=== PATIENT | female | born 1980 | race Caucasian/White ===

== ENCOUNTER 2016-07-10 02:51 | Inpatient (IN) | payer OTHER ==
[~2016-07-10] VITALS: Ht 177.8 cm; Wt 78.0 kg
[2016-07-10] MEDS ORDERED: EPINEPHRINE 1 MG/ML ONE (03:03)
[2016-07-10] MEDS ORDERED: METHYLPRED SOD SUCC 125 MG/2 ML VIAL ONE (03:03)
[2016-07-10] MEDS ORDERED: EPINEPHrine 1 MG/ML AMP ONE (03:05)
[2016-07-10] MEDS ORDERED: FAMOTIDINE 20 MG INJ ONE (03:10)
[2016-07-10] MEDS ORDERED: DIPHENHYDRAMINE 50 MG/ML VIAL ONE (03:10)
[2016-07-10] MEDS ORDERED: ONDANSETRON 4 MG VIAL ONE (03:22)
[2016-07-10] MEDS ORDERED: DUONEB INH ONE (03:31)
[2016-07-10] MEDS ORDERED: hydrOXYzine 50 MG/ML VIAL IM ONE ×2 (06:00→06:05)
[2016-07-10] MEDS ORDERED: SALINE FLUSH 10 ML FLUSH PRN (06:45)
[2016-07-10] MEDS ORDERED: BISACODYL EC 5 MG TAB PO PRN (06:45)
[2016-07-10] MEDS ORDERED: ACETAMINOPHEN 325 MG TAB PO PRN (06:45)
[2016-07-10] MEDS ORDERED: ALU/MAG/SIM 30 ML UDC PO PRN (06:45)
[2016-07-10] MEDS ORDERED: MAG HYDROX 30 ML UDC PO PRN (06:45)
[2016-07-10] MEDS ORDERED: BISACODYL 10 MG SUPP RECTAL PRN (06:45)
[2016-07-10] MEDS ORDERED: NEB-RACEPINEPH 0.5 ML INH PRN (07:55)
[2016-07-10 08:43] VITALS: BP_SYST 109; RESP 16; TEMP 98.5
[2016-07-10] MEDS: DUONEB INH SCH ×5 (08:48→22:58)
[2016-07-10] MEDS ORDERED: PREDNISONE 20 MG TAB PO SCH (09:00)
[2016-07-10 10:09] VITALS: BMI 24.7
[2016-07-10] MEDS: SALINE FLUSH 10 ML FLUSH SCH ×2 (10:51→20:22)
[2016-07-10] MEDS: DIPHENHYDRAMINE 25 MG CAP PO SCH ×3 (10:51→20:21)
[2016-07-10] MEDS: PREDNISONE 50 MG TAB PO SCH (10:52)
[2016-07-10] MEDS: MONTELUKAST 10 MG TAB PO SCH (10:52)
[2016-07-10] MEDS: FAMOTIDINE 40 MG TAB PO SCH ×2 (10:52→20:21)
[2016-07-10] MEDS ORDERED: MISSING DOSE XX ONE (11:00)
[2016-07-10 11:31] VITALS: BP_SYST 125; RESP 16; TEMP 97.6
[2016-07-10 11:32] VITALS: RESP 18
[2016-07-10] MEDS ORDERED: DUONEB INH SCH (12:30)
[2016-07-10 16:45] VITALS: BP_SYST 105; RESP 16; TEMP 98.4
[2016-07-10 19:58] VITALS: BP_SYST 111; RESP 16; TEMP 98.4
[2016-07-10] MEDS: DIPHENHYDRAMINE 50 MG/ML VIAL IV PRN (22:32)
[2016-07-10 23:20] VITALS: BP_SYST 103; RESP 18; TEMP 98.5
[2016-07-11] VITALS (20 sets, daily range): BP systolic 101–165; RESP 14–21; TEMP 97.5–98.8
[2016-07-11] MEDS: SODIUM CHLORIDE 0.9% FLUSH BAG 500 ML IV SCH (06:00)
[2016-07-11] MEDS: DUONEB INH SCH ×6 (06:58→22:06)
[2016-07-11] MEDS ORDERED: MISSING DOSE XX ONE (09:40)
[2016-07-11] MEDS: SALINE FLUSH 10 ML FLUSH SCH ×2 (10:06→20:00)
[2016-07-11] MEDS: MONTELUKAST 10 MG TAB PO SCH (10:06)
[2016-07-11] MEDS: DIPHENHYDRAMINE 25 MG CAP PO SCH ×3 (10:06→21:00)
[2016-07-11] MEDS: FAMOTIDINE 40 MG TAB PO SCH (10:06)
[2016-07-11] MEDS: PREDNISONE 50 MG TAB PO SCH (10:07)
[2016-07-11] MEDS ORDERED: LORATADINE 10 MG TAB PO SCH (12:55)
[2016-07-11] MEDS: DIPHENHYDRAMINE 50 MG/ML VIAL IV PRN ×2 (12:59→18:13)
[2016-07-11] MEDS: CETIRIZINE 10 MG TAB PO SCH (14:31)
[2016-07-11] MEDS ORDERED: DIPHENHYDRAMINE 25 MG CAP PO SCH (16:00)
[2016-07-11] MEDS ORDERED: FENTANYL 100 MCG/2 ML AMP ONE (18:30)
[2016-07-11] MEDS ORDERED: PROPOFOL 100 ML 100 ML IV ONE ×2 (18:43→21:35)
[2016-07-11] MEDS ORDERED: FENTANYL DRIP 50 ML IV ONE (19:18)
[2016-07-11] MEDS ORDERED: FAMOTIDINE 20 MG INJ IV ONE (20:30)
[2016-07-11] MEDS: METHYLPRED SOD SUCC 125 MG/2 ML VIAL IV SCH (21:00)
[2016-07-11] MEDS: NEB-BUDESONIDE 0.5 MG INH SCH (22:06)
[2016-07-11] MEDS: NEB-BROVANA 15 MCG/2 ML INH SCH (22:06)
[2016-07-12] VITALS (48 sets, daily range): BP systolic 101–180; RESP 13–29; TEMP 97.8–98.9; Ht 177.8 cm; Wt 78.0 kg
[2016-07-12] MEDS ORDERED: ETOMIDATE 2 MG/ML 20 ML SYR IV ONE (00:03)
[2016-07-12] MEDS ORDERED: LORAZEPAM 2 MG/ML VIAL ONE (00:03)
[2016-07-12] MEDS ORDERED: MIDAZOLAM HCL 5 MG/5 ML VIAL ONE (00:03)
[2016-07-12] MEDS: DIPHENHYDRAMINE 50 MG/ML VIAL IV SCH ×4 (00:40→23:19)
[2016-07-12] MEDS: FENTANYL DRIP 50 ML IV PRN ×4 (01:23→23:25)
[2016-07-12] MEDS: PROPOFOL 100 ML 100 ML IV PRN ×9 (01:24→23:36)
[2016-07-12] MEDS: METHYLPRED SOD SUCC 125 MG/2 ML VIAL IV SCH ×5 (01:32→23:18)
[2016-07-12] MEDS ORDERED: EPINEPHRINE 0.3 MG/0.3 ML IM PRN (02:45)
[2016-07-12] MEDS: DUONEB INH SCH ×6 (03:00→22:47)
[2016-07-12] MEDS ORDERED: MISSING DOSE XX ONE (03:35)
[2016-07-12] MEDS: SODIUM CHLORIDE 0.9% FLUSH BAG 500 ML IV SCH (05:48)
[2016-07-12] MEDS ORDERED: SUCCINYLCHOLINE 20 MG/ML VL ONE (06:03)
[2016-07-12] MEDS ORDERED: ETOMIDATE 2 MG/ML VIAL IV ONE (06:03)
[2016-07-12] MEDS: NEB-BUDESONIDE 0.5 MG INH SCH ×2 (06:09→17:41)
[2016-07-12] MEDS: NEB-BROVANA 15 MCG/2 ML INH SCH ×2 (06:09→17:40)
[2016-07-12] MEDS: FAMOTIDINE 20 MG INJ IV SCH ×2 (08:02→20:27)
[2016-07-12] MEDS: SALINE FLUSH 10 ML FLUSH SCH ×2 (08:02→20:26)
[2016-07-12] MEDS: CETIRIZINE 10 MG TAB PO SCH (08:32)
[2016-07-12] MEDS: MONTELUKAST 10 MG TAB PO SCH (08:32)
[2016-07-12] MEDS ORDERED: MIDAZOLAM 2 MG/2 ML INJ ONE (23:22)
[2016-07-12] MEDS ORDERED: MIDAZOLAM HCL 5 MG/5 ML VIAL IV ONE (23:30)
[2016-07-13] VITALS (31 sets, daily range): BP systolic 61–137; RESP 7–17; TEMP 98.3–99.6
[2016-07-13] MEDS: PROPOFOL 100 ML 100 ML IV PRN ×3 (02:30→08:33)
[2016-07-13] MEDS: DUONEB INH SCH ×6 (02:40→23:12)
[2016-07-13] MEDS: SODIUM CHLORIDE 0.9% FLUSH BAG 500 ML IV SCH (05:27)
[2016-07-13] MEDS: METHYLPRED SOD SUCC 125 MG/2 ML VIAL IV SCH (05:28)
[2016-07-13] MEDS: NEB-BROVANA 15 MCG/2 ML INH SCH ×2 (06:28→18:37)
[2016-07-13] MEDS: NEB-BUDESONIDE 0.5 MG INH SCH ×2 (06:28→18:37)
[2016-07-13] MEDS: FENTANYL DRIP 50 ML IV PRN (07:32)
[2016-07-13] MEDS: MONTELUKAST 10 MG TAB PO SCH (07:52)
[2016-07-13] MEDS: SALINE FLUSH 10 ML FLUSH SCH ×2 (07:52→21:21)
[2016-07-13] MEDS: FAMOTIDINE 20 MG INJ IV SCH ×2 (07:53→21:21)
[2016-07-13] MEDS: CETIRIZINE 10 MG TAB PO SCH (07:53)
[2016-07-13] MEDS: DIPHENHYDRAMINE 50 MG/ML VIAL IV SCH ×2 (07:54→16:00)
[2016-07-13] MEDS ORDERED: NEB-RACEPINEPH 0.5 ML INH PRN ×2 (08:40→10:40)
[2016-07-13] MEDS: ONDANSETRON 4 MG VIAL IV PRN ×2 (10:34→16:12)
[2016-07-13] MEDS ORDERED: MISSING DOSE XX ONE (11:15)
[2016-07-13] MEDS: DIPHENHYDRAMINE 50 MG/ML VIAL IV PRN (11:25)
[2016-07-13] MEDS ORDERED: PROMETHAZINE 25 MG/ML VIAL IV ONE ×2 (11:45→16:25)
[2016-07-13] MEDS ORDERED: METOCLOPRAMIDE 10 MG/2 ML VIAL IV PUSH ONE (11:45)
[2016-07-13] MEDS: METHYLPRED SOD SUCC 40 MG VIAL IV SCH ×2 (12:00→17:25)
[2016-07-13] MEDS ORDERED: PROMETHAZINE 25 MG/ML VIAL IV PRN (17:05)
[2016-07-13] MEDS ORDERED: LACT RINGERS 1,000 ML IV SCH (17:05)
[2016-07-13] MEDS: PROMETHAZINE 25 MG/ML VIAL IV PRN (21:21)
[2016-07-14] VITALS (24 sets, daily range): BP systolic 97–135; RESP 11–23; TEMP 98.5–98.7
[2016-07-14] MEDS: METHYLPRED SOD SUCC 40 MG VIAL IV SCH ×2 (00:07→07:45)
[2016-07-14] MEDS: DIPHENHYDRAMINE 50 MG/ML VIAL IV SCH ×2 (00:08→08:45)
[2016-07-14] MEDS: DUONEB INH SCH ×6 (02:41→23:00)
[2016-07-14] MEDS: PROMETHAZINE 25 MG/ML VIAL IV PRN (04:26)
[2016-07-14] MEDS: SODIUM CHLORIDE 0.9% FLUSH BAG 500 ML IV SCH (05:29)
[2016-07-14] MEDS: NEB-BUDESONIDE 0.5 MG INH SCH ×2 (06:32→18:44)
[2016-07-14] MEDS: NEB-BROVANA 15 MCG/2 ML INH SCH ×2 (06:32→18:46)
[2016-07-14] MEDS: SALINE FLUSH 10 ML FLUSH SCH ×2 (07:48→20:42)
[2016-07-14] MEDS: MONTELUKAST 10 MG TAB PO SCH (08:44)
[2016-07-14] MEDS: CETIRIZINE 10 MG TAB PO SCH (08:44)
[2016-07-14] MEDS: FAMOTIDINE 20 MG INJ IV SCH (08:45)
[2016-07-14] MEDS ORDERED: CHLORASEPTIC 180 ML BTL PO PRN (10:35)
[2016-07-14] MEDS ORDERED: WARFARIN 4 MG TAB PO ONE (11:10)
[2016-07-14] MEDS: ENOXAPARIN 80 MG/0.8 ML SYR SUBQ SCH ×2 (11:13→21:35)
[2016-07-14] MEDS: DIPHENHYDRAMINE 25 MG CAP PO SCH ×2 (15:05→20:38)
[2016-07-14] MEDS: DIPHENHYDRAMINE 50 MG/ML VIAL IV PRN (20:39)
[2016-07-14] MEDS: FAMOTIDINE 20 MG TAB PO SCH (21:32)
[2016-07-15] VITALS (20 sets, daily range): BP systolic 112–135; RESP 11–31; TEMP 97.8–98.6
[2016-07-15] MEDS: DUONEB INH SCH ×6 (02:30→22:43)
[2016-07-15] MEDS: NEB-BROVANA 15 MCG/2 ML INH SCH ×2 (05:30→18:16)
[2016-07-15] MEDS: NEB-BUDESONIDE 0.5 MG INH SCH ×2 (05:30→18:16)
[2016-07-15] MEDS: SODIUM CHLORIDE 0.9% FLUSH BAG 500 ML IV SCH (06:00)
[2016-07-15] MEDS: DIPHENHYDRAMINE 25 MG CAP PO SCH ×3 (08:04→20:06)
[2016-07-15] MEDS: FAMOTIDINE 20 MG TAB PO SCH ×2 (08:04→20:06)
[2016-07-15] MEDS: MONTELUKAST 10 MG TAB PO SCH (08:04)
[2016-07-15] MEDS: PREDNISONE 50 MG TAB PO SCH (08:04)
[2016-07-15] MEDS: CETIRIZINE 10 MG TAB PO SCH (08:04)
[2016-07-15] MEDS: SALINE FLUSH 10 ML FLUSH SCH ×2 (08:05→20:06)
[2016-07-15] MEDS: ENOXAPARIN 80 MG/0.8 ML SYR SUBQ SCH (08:06)
[2016-07-16] VITALS (7 sets, daily range): BP systolic 100–140; RESP 16–18; TEMP 97.8–98.5
[2016-07-16] MEDS: ENOXAPARIN 80 MG/0.8 ML SYR SUBQ SCH ×3 (02:16→22:50)
[2016-07-16] MEDS: DUONEB INH SCH ×6 (02:38→22:32)
[2016-07-16] MEDS: NEB-BROVANA 15 MCG/2 ML INH SCH ×2 (05:11→19:22)
[2016-07-16] MEDS: NEB-BUDESONIDE 0.5 MG INH SCH ×2 (05:11→19:22)
[2016-07-16] MEDS: SODIUM CHLORIDE 0.9% FLUSH BAG 500 ML IV SCH (06:00)
[2016-07-16] MEDS: CETIRIZINE 10 MG TAB PO SCH (08:15)
[2016-07-16] MEDS: SALINE FLUSH 10 ML FLUSH SCH ×2 (08:15→21:35)
[2016-07-16] MEDS: MONTELUKAST 10 MG TAB PO SCH (08:15)
[2016-07-16] MEDS: PREDNISONE 50 MG TAB PO SCH (08:16)
[2016-07-16] MEDS: FAMOTIDINE 20 MG TAB PO SCH ×2 (08:16→21:35)
[2016-07-16] MEDS: DIPHENHYDRAMINE 25 MG CAP PO SCH ×3 (08:16→21:35)
[2016-07-16] MEDS: DIPHENHYDRAMINE 50 MG/ML VIAL IV PRN ×2 (09:31→16:12)
[2016-07-16] MEDS ORDERED: MISSING DOSE XX ONE (16:40)
[2016-07-17] VITALS (8 sets, daily range): BP systolic 106–146; RESP 18–20; TEMP 98.2–98.3
[2016-07-17] MEDS: DIPHENHYDRAMINE 50 MG/ML VIAL IV PRN (01:32)
[2016-07-17] MEDS: DUONEB INH SCH ×5 (02:22→17:02)
[2016-07-17] MEDS: SODIUM CHLORIDE 0.9% FLUSH BAG 500 ML IV SCH (05:24)
[2016-07-17] MEDS: NEB-BUDESONIDE 0.5 MG INH SCH ×2 (07:00→17:02)
[2016-07-17] MEDS: NEB-BROVANA 15 MCG/2 ML INH SCH ×2 (07:00→17:02)
[2016-07-17] MEDS: DIPHENHYDRAMINE 25 MG CAP PO SCH ×2 (10:09→16:43)
[2016-07-17] MEDS: MONTELUKAST 10 MG TAB PO SCH (10:09)
[2016-07-17] MEDS: PREDNISONE 50 MG TAB PO SCH (10:09)
[2016-07-17] MEDS: CETIRIZINE 10 MG TAB PO SCH (10:09)
[2016-07-17] MEDS: FAMOTIDINE 20 MG TAB PO SCH (10:09)
[2016-07-17] MEDS: ENOXAPARIN 80 MG/0.8 ML SYR SUBQ SCH (10:10)
[2016-07-17] MEDS: SALINE FLUSH 10 ML FLUSH SCH (10:11)
== END 2016-07-17 16:54 | disposition home or self-care (01) | DRG 915 ==
LOC: ENRESERVDT → ENRESERVTM → ER 02:51 → EMR 06:45 → UNDOADMOB 07:16 → EMR 07:16 → 4NT 08:09 → 4THE 08:28 → CCU 07-11 19:11 → OBSVTOIN 07-11 22:36 → ENPENDDIS 07-11 22:36 → 4NT 07-15 18:46
PROVIDERS: ADMIT Internal Medicine; ATTEND Internal Medicine
PROC: 5A1945Z Respiratory Ventilation, 24-96 Consecutive Hours (ICD-10-PCS; principal; 2016-07-11)
PROC: 0BH17EZ Insertion of Endotracheal Airway into Trachea, Via Natural or Artificial Opening (ICD-10-PCS; 2016-07-11)
CPT/HCPCS: 36415; 71010; 80053; 82553; 82785; 83735; 84100; 84484; 85025; 85610; 85652; 85730; 86003; 86141; 86160; 87040; 93005; 94002; 94003; 94640; 94667; 94799; 96372; 96374; 96375; 99232; 99233; 99291